=== PATIENT | male | born 1975 | race Caucasian/White ===

== ENCOUNTER 2017-03-16 16:21 | Emergency (ER) | payer OTHER ==
[~2017-03-16] VITALS: Ht 182.9 cm; Wt 120.0 kg
[~2017-03-16 16:21] MED LIST: ALBU0.086 NEB; ALBU1AER INH; MEDR4PAK3 PO; NEBUKIT4; OMEP20TA PO
[2017-03-16 16:25] VITALS: BP 135/82; PULSE 88; RESP 16; TEMP 97.8; O2SAT 95
[2017-03-16 16:38] LABS: BILIRUBIN, URINE NEG (NEG); BLOOD, URINE SMALL (NEG); GLUCOSE,URINE NEG (NEG); KETONE, URINE NEG (NEG); NITRITE,URINE NEG (NEG); PH, URINE 5.5 (5.0-8.5); URINE LEUKOCYTE ESTERASE NEG (NEG)
[2017-03-16 16:45] LABS: URINE COLOR YELLOW (YELLW/STRAW)
[2017-03-16] MEDS ORDERED: ATOR10TA15 PO (16:45)
[2017-03-16] MEDS ORDERED: BP Med (16:45)
[2017-03-16 16:46] LABS: SQUAMOUS EPITHELIAL CELL URINE 0-5 /hpf (0-5)
[2017-03-16] MEDS ORDERED: SODIUM CHLOR 0.9% 1000 ML INJ 1,000 ML IV ONE (17:00)
[2017-03-16] MEDS ORDERED: ONDANSETRON HCL 4 MG/2 ML VIAL IV PUSH ONE (17:00)
[2017-03-16] MEDS ORDERED: MORPHINE SULFATE 2 MG/ML INJ IV PUSH ONE (17:00)
[2017-03-16] MEDS ORDERED: SODIUM CHLORIDE 0.9% FLUSH 10 ML FLUSH IV FLUSH PRN (17:00)
--- NOTE | 2017-03-16 17:03 | PD ---
HPI Chief Complaint: Abdominal Pain Time Seen by Provider: 16:47 Travel History International Travel<30 days: No Contact w/Intl Traveler<30days: No Traveled to known affect area: No History of Present Illness HPI 41yo M presented to the ED with abdominal pain. Pt reports that last night he started having pains in his LLQ with diarrhea. He describes the pain as dull in nature and constant. He reports that the pain is a 7/10, but worsens to a 10/10 when he urinates, goes over speed bumps or moves quickly. He has no history of abdominal surgeries. He has a past medical history of HTN and high cholesterol. He does not smoke or use recreational drugs. He drink alcohol socially. He denies any nausea, vomiting, hematuria, CVA tenderness, fevers, myalgias, hematochezia, melena, or weakness. Modifying Factors: None Associated Signs & Symptoms: Left lower quadrant pain, diarrhea Risk Factors: None PFSH Past Medical History High Cholesterol: Yes Hypertension: Yes Neurologic: Yes (B.B. FROM [facility].B.[facility] [facility] (L) EYE.) Respiratory: Yes (sob) Immunizations Current: Yes Tetanus Vaccination: Unknown Influenza Vaccination: No Past Surgical History Surgical History: No Previous Surgery Social History Alcohol Use: Yes (BEER ON WEEKENDS) Tobacco Use: No Substance Use: No Allergies-Medications (Allergen,Severity, Reaction): Coded Allergies: No Known Allergies (Verified Adverse Reaction, Unknown, 03/16/17) Reported Meds & Prescriptions Reported Meds & Active Scripts Active Reported Ibuprofen 600 Mg Tab 600 Mg PO Q6H PRN [BP Med] Atorvastatin (Atorvastatin Calcium) 10 Mg Tab Unknown Dose PO HS Review of Systems Except as stated in HPI: all other systems reviewed are Neg Physical Exam Narrative GENERAL: 41yo M who is well-developed and well nourished. Alert and oriented x3. SKIN: Warm and dry. HEAD: Atraumatic. Normocephalic. NECK: Trachea midline. No JVD. CARDIOVASCULAR: Regular rate and rhythm. RESPIRATORY: No accessory muscle use. Clear to auscultation. Breath sounds equal bilaterally. GASTROINTESTINAL: Abdomen soft and nondistended. Hepatic and splenic margins not palpable. Tenderness in the LLQ without guarding. BACK: No CVA tenderness. No rash. No point tenderness on palpation of the spine. MUSCULOSKELETAL: Extremities without clubbing, cyanosis, or edema. No obvious deformities. NEUROLOGICAL: Awake and alert. No obvious cranial nerve deficits. Motor grossly within normal limits. Normal speech. PSYCHIATRIC: Appropriate mood and affect; insight and judgment normal. Data Data Last Documented VS Vital Signs Date Time Temp Pulse Resp B/P (MAP) Pulse Ox O2 Delivery O2 Flow Rate FiO2 03/16/17 16:25 97.8 88 16 135/82 (99) 95 Orders Orders Urinalysis - C+S If Indicated (03/16/17 16:28) Complete Blood Count With Diff (03/16/17 16:53) Comprehensive Metabolic Panel (03/16/17 16:53) Lipase (03/16/17 16:53) Ct Abd/Pel W Iv Contrast(Rout) (03/16/17 16:53) Iv Access Insert/Monitor (03/16/17 16:53) Ecg Monitoring (03/16/17 16:53) Oximetry (03/16/17 16:53) Sodium Chloride 0.9% Flush (Ns Flush) (03/16/17 17:00) Sodium Chlor 0.9% 1000 Ml Inj (Ns 1000 M (03/16/17 17:00) Ondansetron Inj (Zofran Inj) (03/16/17 17:00) Morphine Inj (Morphine Inj) (03/16/17 17:00) Iohexol 350 Inj (Omnipaque 350 Inj) (03/16/17 17:44) Ed Discharge Order (03/16/17 18:14) Labs Laboratory Tests Test 03/16/17 16:30 03/16/17 16:58 Urine Collection Type CLEAN CATCH Urine Color YELLOW Urine Turbidity CLEAR Urine pH 5.5 Urine Specific [place] 1.025 Urine Protein NEG mg/dL Urine Glucose (UA) NEG mg/dL Urine Ketones NEG mg/dL Urine Occult Blood SMALL Urine Nitrite NEG Urine Bilirubin NEG Urine Leukocyte Esterase NEG Urine RBC 4-9 /hpf Urine Squamous Epithelial Cells 0-5 /hpf Microscopic Urinalysis Comment CULT NOT INDICATED Urine Collection Time 16:30 White Blood Count 9.3 TH/MM3 Red Blood Count 5.33 MIL/MM3 Hemoglobin 14.8 GM/DL Hematocrit 44.4 % Mean Corpuscular Volume 83.4 FL Mean Corpuscular Hemoglobin 27.7 PG Mean Corpuscular Hemoglobin Concent 33.2 % Red Cell Distribution Width 12.1 % Platelet Count 280 TH/MM3 Mean Platelet Volume 7.2 FL Neutrophils (%) (Auto) 65.9 % Lymphocytes (%) (Auto) 25.3 % Monocytes (%) (Auto) 4.9 % Eosinophils (%) (Auto) 2.9 % Basophils (%) (Auto) 1.0 % Neutrophils # (Auto) 6.1 TH/MM3 Lymphocytes # (Auto) 2.3 TH/MM3 Monocytes # (Auto) 0.5 TH/MM3 Eosinophils # (Auto) 0.3 TH/MM3 Basophils # (Auto) 0.1 TH/MM3 CBC Comment DIFF FINAL Differential Comment Blood Urea Nitrogen 16 MG/DL Creatinine 1.10 MG/DL Random Glucose 171 MG/DL Total Protein 8.3 GM/DL Albumin 4.1 GM/DL Calcium Level 9.6 MG/DL Alkaline Phosphatase 104 U/L Aspartate Amino Transf (AST/SGOT) 42 U/L Alanine Aminotransferase (ALT/SGPT) 72 U/L Total Bilirubin 0.5 MG/DL Sodium Level 134 MEQ/L Potassium Level 4.0 MEQ/L Chloride Level 98 MEQ/L Carbon Dioxide Level 29.6 MEQ/L Anion Gap 6 MEQ/L Estimat Glomerular Filtration Rate 74 ML/MIN Lipase 154 U/L [facility] Medical Decision Making Medical Screen Exam Complete: Yes Emergency Medical Condition: Yes Medical Record Reviewed: Yes Interpretation(s) Laboratory Tests Test 03/16/17 16:30 03/16/17 16:58 Urine Occult Blood SMALL (NEG) Urine RBC 4-9 /hpf (0-3) Random Glucose 171 MG/DL (74-106) Total Protein 8.3 GM/DL (6.4-8.2) Aspartate Amino Transf (AST/SGOT) 42 U/L (15-37) Sodium Level 134 MEQ/L (136-145) Estimat Glomerular Filtration Rate 74 ML/MIN (>89) Differential Diagnosis Renal colic versus UTI/pyelonephritis versus gastroenteritis versus diverticulitis Narrative Course Lab work did not show any signs of UTI although he did have small amount of RBCs in his urine. CAT scan was done did not show any signs of kidney stones. He did have gallstones but no signs of cholecystitis. He did not have any signs of other acute intra-abdominal processes. Lab was otherwise unremarkable. At this point, my plan would be to give him symptomatic relief or pain and have him follow-up with primary care physician. Return for any worsening in symptoms as necessary. The plan was discussed with the patient and he states understanding. Diagnosis Primary Impression: Abdominal pain Med/Other Pt SpecificInfo: Prescription(s) given Scripts Loperamide (Imodium A-D) 2 Mg Capsule 2 MG PO DIRECTED Y for DIARRHEA, #15 CAP 0 Refills One capsule after each loose stool. Not to exceed 8 tablets per day. Prov: Shahbaz Mcgraw MD 03/16/17 Ibuprofen (Ibuprofen) 600 Mg Tab 600 MG PO Q6H Y for Pain/Inflammation, #40 TAB 0 Refills Prov: Shahbaz Mcgraw MD 03/16/17 Disposition: 01 DISCHARGE HOME Condition: Stable Shahbaz Mcgraw MD Mar 16, 2017 17:03
[2017-03-16 17:06] LABS: AUTOMATED NEUTROPHIL # 6.1 TH/MM3 (1.8-7.7); BASOPHIL # 0.1 TH/MM3 (0-0.2); EOSINOPHIL # 0.3 TH/MM3 (0-0.4); EOSINOPHIL % 2.9 % (0.0-4.0); HEMATOCRIT 44.4 % (39.0-51.0); HEMOGLOBIN 14.8 GM/DL (13.0-17.0); LYMPH % 25.3 % (9.0-44.0); LYMPHOCYTE # 2.3 TH/MM3 (1.0-4.8); MEAN CELL VOLUME 83.4 FL (80.0-100.0); MEAN CORPUSCULAR HEMOGLOBIN 27.7 PG (27.0-34.0); MEAN CORPUSCULAR HGB CONC 33.2 % (32.0-36.0); MEAN PLATELET VOLUME 7.2 FL (7.0-11.0); MONO % 4.9 % (0.0-8.0); MONOCYTE # 0.5 TH/MM3 (0-0.9); NEUT % 65.9 % (16.0-70.0); PLATELET COUNT 280 TH/MM3 (150-450); RED BLOOD COUNT 5.33 MIL/MM3 (4.50-5.90); RED CELL DISTRIBUTION WIDTH 12.1 % (11.6-17.2); WHITE BLOOD COUNT 9.3 TH/MM3 (4.0-11.0)
[2017-03-16 17:14] LABS: CHLORIDE 98 MEQ/L (98-107); SODIUM (NA) 134 MEQ/L (136-145)
[2017-03-16] MEDS ORDERED: IBUP-232 PO ×2 (17:15→18:18)
[2017-03-16 17:18] LABS: ALBUMIN 4.1 GM/DL (3.4-5.0); BICARBONATE 29.6 MEQ/L (21.0-32.0); CALCIUM 9.6 MG/DL (8.5-10.1); GLUCOSE,RANDOM 171 MG/DL (74-106); LIPASE 154 U/L (73-393)
[2017-03-16 17:19] LABS: BLOOD UREA NITROGEN 16 MG/DL (7-18)
[2017-03-16 17:21] LABS: ALT (GPT) 72 U/L (12-78); AST (GOT) 42 U/L (15-37); GLOMERULAR FILTRATION RATE 74 ML/MIN (>89)
[2017-03-16 17:23] LABS: TOTAL BILIRUBIN ADULT 0.5 MG/DL (0.2-1.0); TOTAL PROTEIN 8.3 GM/DL (6.4-8.2)
[2017-03-16 17:24] LABS: ALKALINE PHOSPHATASE 104 U/L (45-117)
[2017-03-16] MEDS ORDERED: IOHEXOL 350 MG/ML 10 ML VIAL (for RAD DIAG) IVCONTRAST ONE (17:44)
--- NOTE | 2017-03-16 17:59 | RADRPT ---
EXAM DATE/TIME: 03/16/2017 17:36 [facility] COMPARISON: No previous studies available for comparison. INDICATIONS : Lower abdominal pain. IV CONTRAST: 95 cc Omnipaque 350 (iohexol) IV ORAL CONTRAST: No oral contrast ingested. RADIATION DOSE: 21.83 CTDIvol (mGy) MEDICAL HISTORY : Hypertension. SURGICAL HISTORY : None. ENCOUNTER: Initial ACUITY: 1 day PAIN SCALE: 4/10 LOCATION: lower quadrant TECHNIQUE: Volumetric scanning of the abdomen and pelvis was performed. Using automated exposure control and ad justment of the mA and/or kV according to patient size, radiation dose was kept as low as reasonably achievable to obtain optimal diagnostic quality images. DICOM format image data is available electro nically for review and comparison. FINDINGS: LOWER LUNGS: The visualized lower lungs are clear. LIVER: Homogeneous density without lesion. There is no dilation of the biliary tree. No calcified gallston es. There is mild hepatic steatosis. There multiple calcified gallstones layering dependently in the gallbladder. There is no gallbladder wall thickening or pericholecystic fluid. SPLEEN: Normal size without lesion. PANCREAS: Within normal limits. KIDNEYS: Normal in size and shape. There is no mass, stone or hydronephrosis. ADRENAL GLANDS: Within normal limits. VASCULAR: There is no aortic aneurysm. BOWEL/MESENTERY: The stomach, small bowel, and colon demonstrate no acute abnormality. There is no free intraperitone al air or fluid. ABDOMINAL WALL: Within normal limits. RETROPERITONEUM: There is no lymphadenopathy. BLADDER: No wall thickening or mass. REPRODUCTIVE: Within normal limits. INGUINAL: There is no lymphadenopathy or hernia. MUSCULOSKELETAL: Within normal limits for patient age. CONCLUSION: 1. Cholelithiasis with numerous small calcified gallstones. There is no wall thickening or pericholec ystic fluid. There is no evidence of biliary obstruction. 2. Mild hepatic steatosis. 3. Unremarkable bowel gas pattern and normal appendix. Augustin Reed MD on March 16, 2017 at 17:54 Board Certified Radiologist. This report was verified electronically.
[2017-03-16 18:15] VITALS: BP 149/95; PULSE 75; RESP 18; O2SAT 97
[2017-03-16] MEDS ORDERED: LOPE-1 PO (18:18)
== END 2017-03-16 18:32 | disposition home or self-care (01) ==
LOC: PHED 16:21
DX: R10.32 Left lower quadrant pain (principal); R19.7 Diarrhea, unspecified; E78.00 Pure hypercholesterolemia, unspecified; I10 Essential (primary) hypertension
CPT/HCPCS: 74177; 80053; 81001; 83690; 85025; 96374; 96375; 99285; J2270; J2405; J7030; Q9967